=== PATIENT | female | born 1945 | race Caucasian/White ===

== ENCOUNTER 2017-06-15 10:01 | Emergency (ER) | payer MEDICARE ==
[~2017-06-15] VITALS: Ht 157.5 cm; Wt 52.5 kg
[~2017-06-15 10:01] MED LIST: BENI20TA26 PO; OMPR20CCR PO; SIMV40 PO
[2017-06-15 10:03] VITALS: BP 139/75; PULSE 80; RESP 15; TEMP 98; O2SAT 98
--- NOTE | 2017-06-15 10:26 | PD ---
HPI Chief Complaint: Skin Problem Time Seen by Provider: 10:16 Travel History International Travel<30 days: Yes Contact w/Intl Traveler<30days: [place] Country Traveled to: [place] Traveled to known affect area: No History of Present Illness HPI This 8-year-old woman who presents to the emergency department complaining of right arm pain and swelling and redness it has been going on for the past couple days. She recently traveled from [place]. She's had trouble skin infections when she passes sutured with spider bites. No history of DVT. Only medical history a previous treatment for hypertension but not now. No fevers. No other complaints. History Past Medical History Narrative Medical Previously treated for hypertension Social History Alcohol Use: Yes (SOCIALLY) Tobacco Use: No Allergies-Medications (Allergen,Severity, Reaction): Coded Allergies: Sulfa (Sulfonamide Antibiotics) (Verified Allergy, Severe, Rash, 06/15/17) bee venom protein (honey bee) (Verified Allergy, Unknown, 06/15/17) Reported Meds & Prescriptions Reported Meds & Active Scripts Active Reported Zocor 40 Mg Tab (Simvastatin) 40 Mg Tab 40 Mg PO HS Prilosec 20 Mg Cap (Omeprazole) 20 Mg Capcr 20 Mg PO DAILY Benicar Hct (Olmesartan/HCTZ) 20 Mg/12.5 Mg Tab 1 Tab PO DAILY Review of Systems Except as stated in HPI: all other systems reviewed are Neg Physical Exam Narrative GENERAL: Well-appearing 71-year-old woman, no acute distress. SKIN: Warm and dry. CARDIOVASCULAR: Warm and well perfused. RESPIRATORY: Normal rate and effort. MUSCULOSKELETAL: Faint erythema with warmth and swelling more on the volar side of the forearm. Does not extend above the elbow. Good pulses. Good capillary refill. No induration or fluctuance. NEUROLOGICAL: Awake and alert. No gross deficits. Data Data Last Documented VS Vital Signs Date Time Temp Pulse Resp B/P (MAP) Pulse Ox O2 Delivery O2 Flow Rate FiO2 06/15/17 10:03 98.0 80 15 139/75 (96) 98 Orders Orders Us Arm Venous Doppler (06/15/17 ) Cephalexin (Keflex) (06/15/17 10:30) MDM Medical Decision Making Medical Screen Exam Complete: Yes Emergency Medical Condition: Yes Interpretation(s) Ultrasound negative Differential Diagnosis Cellulitis, and DVT, reactive edema, other Narrative Course Medical decision making This is a 71-year-old woman who presents to the emergency department complaining of right arm erythema warmth and swelling suggestive of a skin infection. Amount of erythema is really pretty faint. Looks a little bit unusual for her typical cellulitis. We'll check for ultrasound for DVT. If negative will treat for cellulitis. Diagnosis Primary Impression: Cellulitis Additional Instructions: Take antibiotics as prescribed. Follow up with her primary doctor in next 2-4 days. Return to the emergency department for any new or worsening symptoms. Med/Other Pt SpecificInfo: No Change to Meds Disposition: 01 DISCHARGE HOME Condition: Stable kT Ramirez MD Jun 15, 2017 10:25
[2017-06-15] MEDS ORDERED: CEPHALEXIN MONOHYDRATE 500 MG CAP PO ONE (10:30)
--- NOTE | 2017-06-15 11:16 | RADRPT ---
EXAM DATE/TIME: 06/15/2017 10:49 [facility] COMPARISON: No previous studies available for comparison. INDICATIONS : Right arm edema. MEDICAL HISTORY : Hypercholesterolemia. Hypertension. Gastroesophageal reflux disease. SURGICAL HISTORY : Tonsillectomy. ENCOUNTER: Initial ACUITY: 2 day PAIN SCORE: 3/10 LOCATION: Right arm. FINDINGS: There is spontaneous flow documented in the brachial, basilic, cephalic, axillary, and subclavian vei ns. The vessels are compressible and augmentation response is documented. No filling defects are se en. The flow is phasic with respiration. Direction of flow in the jugular vein is caudal. CONCLUSION: Normal examination. Parmjit Parker MD on June 15, 2017 at 11:14 Board Certified Radiologist. This report was verified electronically.
[2017-06-15] MEDS ORDERED: CEPH-460 PO (11:34)
== END 2017-06-15 11:47 | disposition home or self-care (01) ==
LOC: NEPD 10:01
DX: L03.113 Cellulitis of right upper limb (principal); I10 Essential (primary) hypertension
CPT/HCPCS: 93971